=== PATIENT | male | born 1930 | race Caucasian/White ===

== ENCOUNTER 2017-10-07 08:14 | Emergency (ER) | payer MEDICARE, BC ==
[~2017-10-07] VITALS: Ht 165.1 cm; Wt 47.6 kg
[2017-10-07] MEDS ORDERED: ROSU10TA PO (08:35)
== END 2017-10-07 10:10 | disposition home or self-care (01) ==
LOC: ER 08:14
DX: R33.9 Retention of urine, unspecified (principal); Z79.899 Other long term (current) drug therapy; Z87.891 Personal history of nicotine dependence
CPT/HCPCS: 51702; 51798; 99283

== ENCOUNTER 2017-10-08 13:21 | Emergency (ER) | payer MEDICARE, BC ==
[~2017-10-08] VITALS: Ht 160 cm; Wt 47.6 kg
[~2017-10-08 13:21] MED LIST: ROSU10TA PO
== END 2017-10-08 16:15 | disposition home or self-care (01) ==
LOC: ER 13:21
DX: R33.9 Retention of urine, unspecified (principal); R31.9 Hematuria, unspecified; Z87.891 Personal history of nicotine dependence
CPT/HCPCS: 99283

== ENCOUNTER 2017-10-10 19:15 | Emergency (ER) | payer MEDICARE, BC ==
[~2017-10-10] VITALS: Ht 160 cm; Wt 59.0 kg
== END 2017-10-10 21:03 | disposition home or self-care (01) ==
LOC: ER 19:15
DX: Z46.6 Encounter for fitting and adjustment of urinary device (principal)
CPT/HCPCS: 51798; 99283